=== PATIENT | male | born 1990 | race African-American/Black ===

== ENCOUNTER 2017-01-19 22:24 | Emergency (ER) | payer OTHER ==
[2017-01-19 22:42] VITALS: BP 115/74
[2017-01-20] MEDS ORDERED: Tetan/Diph/Pertus SYR(Tdap)* 0.5 ML SYR(BOOSTRIX) use SYR IM ONE (01:16)
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
== END 2017-01-20 01:39 | disposition home or self-care (01) ==
LOC: ED 22:24
DX: S01.412A Laceration without foreign body of left cheek and temporomandibular area, initial encounter (principal); Y09 Assault by unspecified means; Y92.149 Unspecified place in prison as the place of occurrence of the external cause; Z87.891 Personal history of nicotine dependence; Z23 Encounter for immunization
CPT/HCPCS: 12013; 90471; 90715; 99281